=== PATIENT | male | born 1990 | race Caucasian/White ===

== ENCOUNTER 2016-12-23 16:37 | Emergency (ER) | payer MEDICAID ==
[~2016-12-23] VITALS: Ht 172.7 cm; Wt 65.0 kg
[2016-12-23] MEDS ORDERED: KETOROLAC 60MG/2ML VIAL IM ONE (22:45)
[2016-12-24] MEDS ORDERED: HYDROCODONE/ACETAMINOPHEN 10/325MG TABLET PO ONE (00:15)
[2016-12-24 02:33] VITALS: BP 131/88
== END 2016-12-24 02:36 | disposition home or self-care (01) ==
LOC: ER 16:44
DX: S93.402A Sprain of unspecified ligament of left ankle, initial encounter (principal); F12.10 Cannabis abuse, uncomplicated; X58.XXXA Exposure to other specified factors, initial encounter; Y93.89 Activity, other specified; Y92.018 Other place in single-family (private) house as the place of occurrence of the external cause
CPT/HCPCS: 73610; 96372; 99284; J1885

== ENCOUNTER 2018-11-15 17:36 | Emergency (ER) | payer MEDICAID ==
[~2018-11-15] VITALS: Ht 172.7 cm; Wt 71.0 kg
[2018-11-15 17:40] VITALS: BP 132/78
[2018-11-15] MEDS ORDERED: IBUPROFEN 800MG TABLET PO ONE (18:15)
[2018-11-15] MEDS ORDERED: TETANUS, DIPHTHERIA, PERTUSSIS VAC/PF 0.5ML (>7YR OLD) IM ONE (18:15)
[2018-11-15] MEDS ORDERED: BACITRACIN ZINC OINT UDPKT TOP ONE (18:15)
== END 2018-11-15 18:46 | disposition home or self-care (01) ==
LOC: ER 17:36
DX: S40.021A Contusion of right upper arm, initial encounter (principal); F12.10 Cannabis abuse, uncomplicated; F17.210 Nicotine dependence, cigarettes, uncomplicated; F11.10 Opioid abuse, uncomplicated; V13.4XXA Pedal cycle driver injured in collision with car, pick-up truck or van in traffic accident, initial encounter; Y93.55 Activity, bike riding; Y92.488 Other paved roadways as the place of occurrence of the external cause
CPT/HCPCS: 90471; 90715; 99283

== ENCOUNTER 2021-06-20 23:10 | Emergency (ER) | payer MEDICAID ==
[~2021-06-20] VITALS: Ht 165.1 cm; Wt 74.0 kg
[2021-06-20 23:19] VITALS: BP 110/84
== END 2021-06-21 00:40 | disposition left against medical advice (07) ==
LOC: ER 23:10
DX: Z53.21 Procedure and treatment not carried out due to patient leaving prior to being seen by health care provider (principal)

== ENCOUNTER 2021-08-14 20:44 | Emergency (ER) | payer MEDICAID ==
[~2021-08-14] VITALS: Ht 172.7 cm; Wt 66.0 kg
[2021-08-14 20:50] VITALS: BP 130/90
[2021-08-14] MEDS ORDERED: KETOROLAC 60MG/2ML VIAL IM ONE (21:45)
== END 2021-08-14 23:48 | disposition left against medical advice (07) ==
LOC: ER 20:44
DX: M25.561 Pain in right knee (principal); F11.10 Opioid abuse, uncomplicated; Z86.14 Personal history of Methicillin resistant Staphylococcus aureus infection; V03.90XA Pedestrian on foot injured in collision with car, pick-up truck or van, unspecified whether traffic or nontraffic accident, initial encounter; Y93.89 Activity, other specified; Y92.488 Other paved roadways as the place of occurrence of the external cause
CPT/HCPCS: 99283; J1885

== ENCOUNTER 2022-03-22 19:12 | Emergency (ER) | payer MEDICAID, OTHER ==
[~2022-03-22] VITALS: Ht 172.7 cm; Wt 64.0 kg
[2022-03-22 19:23] VITALS: BP 125/77
[2022-03-22] MEDS ORDERED: SODIUM CHLORIDE 0.9% 1,000 ML IV ONE (23:15)
[2022-03-22 23:53] LABS: BASOPHILS % 0.2 % (0.0-2.0); EOSINOPHILS % 1.9 % (0.0-5.0); HEMATOCRIT. 38.4 % (42.0-52.0); HEMOGLOBIN. 12.9 g/dL (14.0-18.0); LYMPHOCYTES % 16.1 % (20.0-50.0); MEAN CORPUSCULAR HEMOGLOBIN 28.2 pg (28.0-32.0); MEAN CORPUSCULAR VOLUME 83.7 fL (80.0-94.0); MEAN PLATELET VOLUME 7.4 fl (7.4-10.4); MONOCYTES % 8.1 % (2.0-8.0); NEUTROPHILS % 73.7 % (40.0-76.0); PLATELET 227 x1000/uL (130-400); RED BLOOD CELL COUNT 4.59 mill/uL (4.7-6.1); RED CELL DISTRIBUTION WIDTH 13.6 % (11.6-14.6)
[2022-03-23 00:01] LABS: CHLORIDE 100 mEq/L (98-107)
[2022-03-23 00:11] LABS: ETHANOL BLOOD < 10 mg/dL
== END 2022-03-23 02:46 | disposition home or self-care (01) ==
LOC: ER 19:12
DX: R19.7 Diarrhea, unspecified (principal); Z59.00 Homelessness unspecified
CPT/HCPCS: 36415; 73590; 80053; 80320; 83605; 83690; 83735; 85025; 87040; 96360; 99284; J7030; G0480

== ENCOUNTER 2023-10-27 03:33 | Emergency (ER) | payer OTHER, MEDICAID ==
[~2023-10-27] VITALS: Ht 167.6 cm; Wt 65.0 kg
[2023-10-27 03:45] VITALS: BP 136/71; PULSE 102; RESP 16; TEMP 98.2; O2SAT 97
[2023-10-27] MEDS ORDERED: IBUP-2029 MT (03:47)
== END 2023-10-27 05:34 | disposition home or self-care (01) ==
LOC: ER 03:56
DX: M79.674 Pain in right toe(s) (principal); F15.90 Other stimulant use, unspecified, uncomplicated; Z98.890 Other specified postprocedural states
CPT/HCPCS: 99283